=== PATIENT | female | born 1970 | race Caucasian/White ===

== ENCOUNTER → 2016-08-09 | Outpatient (CLI) | payer BC | LOC: MC.RAD 14:30 | DX: Z12.31 Encounter for screening mammogram for malignant neoplasm of breast (principal) ==

== ENCOUNTER → 2017-11-10 | Outpatient (CLI) | payer BC | LOC: MC.RAD 13:34 | DX: Z12.31 Encounter for screening mammogram for malignant neoplasm of breast (principal) ==

== ENCOUNTER → 2018-12-03 | Outpatient (CLI) | payer BC | LOC: MC.RAD 12:12 | DX: Z12.31 Encounter for screening mammogram for malignant neoplasm of breast (principal) ==

== ENCOUNTER → 2020-02-10 | Outpatient (CLI) | payer BC | LOC: MC.RAD 15:31 | DX: Z12.31 Encounter for screening mammogram for malignant neoplasm of breast (principal) ==

== ENCOUNTER 2020-05-25 19:22 | Emergency (ER) | payer BC ==
[~2020-05-25] VITALS: Ht 160 cm; Wt 59.1 kg
[2020-05-25 19:28] VITALS: TEMP 99.2
[2020-05-25 20:27] VITALS: BP 153/109; PULSE 89
== END 2020-05-25 20:27 | disposition home or self-care (01) ==
LOC: COL.ER 19:22
DX: S61.211A Laceration without foreign body of left index finger without damage to nail, initial encounter (principal); Z88.0 Allergy status to penicillin; Z88.1 Allergy status to other antibiotic agents; W26.0XXA Contact with knife, initial encounter

== ENCOUNTER → 2021-02-12 | Outpatient (CLI) | payer BC | LOC: MC.RAD 14:50 | DX: Z12.31 Encounter for screening mammogram for malignant neoplasm of breast (principal) ==

== ENCOUNTER → 2023-05-07 | Outpatient (CLI) | payer BC | LOC: MC.RAD 08:33 | DX: Z12.31 Encounter for screening mammogram for malignant neoplasm of breast (principal) ==